=== PATIENT | male | born 1955 | race Caucasian/White ===

== ENCOUNTER 2017-05-05 23:20 | Emergency (ER) | payer OTHER ==
[2017-05-05] MEDS ORDERED: Lidocaine 1% with EPINEPHrine 1:100,000 50 ML MDV INFILT ONE (23:45)
[2017-05-05] MEDS ORDERED: Bacitracin Oint 1 GM U/D Packet TOP ONE (23:46)
--- NOTE | 2017-05-06 00:55 | EDM.PDOC ---
ED HPI GENERAL MEDICAL PROBLEM - General Chief Complaint: Laceration Stated Complaint: FALL CUT TOP OF HEAD Time Seen by Provider: 05/05/17 23:45 Source of Information: Reports: Patient, Family History Limitations: Reports: Intoxication - History of Present Illness INITIAL COMMENTS - FREE TEXT/NARRATIVE: 61-year-old male who is fairly intoxicated fell backwards and struck his head on a piece of furniture. He has an irregular laceration on his scalp with an avulsed central piece of scalp that was brought in by his . No loss of consciousness, bleeding is controlled. Onset: Sudden Duration: Hour(s): (Within the past hour) Location: Reports: Head Severity: Moderate Associated Symptoms: Reports: No Other Symptoms - Related Data Allergies Allergy/AdvReac Type Severity Reaction Status Date / Time No Known Allergies Allergy Verified 05/05/17 23:33 Home Meds: Home Meds Aspirin [Ecotrin] 325 mg PO DAILY 05/05/17 [History] Hydrochlorothiazide 25 mg PO DAILY 05/05/17 [History] Metoprolol Succinate [Toprol XL] 200 mg PO DAILY 05/05/17 [History] Phenytoin Sodium Extended [Dilantin] 300 mg PO DAILY 05/05/17 [History] Past Medical History Cardiovascular History: Reports: Afib, Hypertension Musculoskeletal History: Reports: Fracture Neurological History: Reports: Seizure Psychiatric History: Reports: Addiction Endocrine/Metabolic History: Reports: Obesity/BMI 30+ Social & Family History - Tobacco Use Smoking Status *Q: Never Smoker - Caffeine Use Caffeine Use: Reports: None - Alcohol Use Days Per Week of Alcohol Use: 7 Number of Drinks Per Day: 12 Total Drinks Per Week: 84 - Recreational Drug Use Recreational Drug Use: Yes Recreational Drug Type: Reports: Marijuana/Hashish Recreational Drug Use Frequency: Socially ED ROS GENERAL - Review of Systems Review Of Systems: See Below Constitutional: Denies: Fever HEENT: Denies: Vision Change Respiratory: Denies: Shortness of Breath GI/Abdominal: Denies: Nausea, Vomiting Neurological: Denies: Headache Psychiatric: Reports: No Symptoms ED EXAM, SKIN/RASH Exam: See Below Exam Limited By: Intoxication General Appearance: Alert, No Apparent Distress Eye Exam: Bilateral Eye: EOMI Head: Other (Patient has an irregular 16 cm laceration on his occiput with a central avulsed missing piece of dermis 1.5 cm wide by 3 cm long) Neck: Non-Tender Respiratory/Chest: No Respiratory Distress Course - Vital Signs Last Recorded V/S: Last Vital Signs Temp 96.5 F 05/05/17 23:34 Pulse 77 05/05/17 23:34 Resp 16 05/05/17 23:34 BP 154/113 H 05/05/17 23:34 Pulse Ox 91 L 05/05/17 23:34 - Orders/Labs/Meds Meds: Medications Discontinued Medications Generic Name Dose Route Start Last Admin Trade Name Bossman PRN Reason Stop Dose Admin Bacitracin 1 dose 05/05/17 23:46 05/05/17 23:54 Bacitracin Oint 1 Gm TOP 05/05/17 23:47 1 dose ONETIME ONE Administration Lidocaine/Epinephrine 30 ml 05/05/17 23:45 05/05/17 23:53 Xylocaine 1% With Epinephrine 1:100,000 INFILT 05/05/17 23:46 30 ml ONETIME ONE Administration - Re-Assessments/Exams Free Text/Narrative Re-Assessment/Exam: 05/06/17 00:52 The area was anesthetized with 1% lidocaine with epinephrine. After anesthesia and washing with saline, the edges of the wound were approximated using considerable undermining of the dermis. 15 sutures, 4-0 Ethilon were used in total to bring edges into approximation. Topical bacitracin and a nonstick dressing was applied, they should stay on for the evening. He should keep the wound covered and clean and stitches can be rechecked in 8 days. They may need to stay in longer because of the tension supplied to the sutures. Departure - Departure Time of Disposition: 01:02 Disposition: Home, Self-Care 01 Condition: Good Clinical Impression: Laceration of scalp with complication Qualifiers: Encounter type: initial encounter Qualified Code(s): S01.01XA - Laceration without foreign body of scalp, initial encounter - Discharge Information Instructions: Laceration Care, Adult, [id number] Referrals: Kellie Akers NP [Primary Care Provider] - Forms: ED Department Discharge Care Plan Goals: Keep wound covered and clean while healing. Okay to wash gently. Have wound rechecked in 8 days, recheck sooner if concerns of infection or not healing satisfactorily.
== END 2017-05-06 01:03 | disposition home or self-care (01) ==
LOC: JP.ED 23:20
DX: S01.01XA Laceration without foreign body of scalp, initial encounter (principal); F10.129 Alcohol abuse with intoxication, unspecified; Z79.82 Long term (current) use of aspirin; Z79.899 Other long term (current) drug therapy; W01.190A Fall on same level from slipping, tripping and stumbling with subsequent striking against furniture, initial encounter; I10 Essential (primary) hypertension
CPT/HCPCS: 12005; 99283; A4217

== ENCOUNTER 2017-05-21 12:53 | Emergency (ER) | payer OTHER ==
[2017-05-21] MEDS ORDERED: Hydrogen Peroxide 3% Top Soln 240 ML Bottle TOP STA (13:52)
--- NOTE | 2017-05-21 13:57 | EDM.PDOC ---
ED HPI GENERAL MEDICAL PROBLEM - General Chief Complaint: General Stated Complaint: REMOVE STITCHES FROM ER VISIT 05/04 Time Seen by Provider: 05/21/17 13:40 Source of Information: Reports: Patient History Limitations: Reports: No Limitations - History of Present Illness INITIAL COMMENTS - FREE TEXT/NARRATIVE: 61 yo male here for suture removal. Onset Date: 05/06/17 Duration: Day(s):, Improving Location: Reports: Head Quality: Reports: Other (no pain) Severity: Mild Improves with: Reports: Other (time) Worsens with: Reports: None Context: Reports: Trauma Associated Symptoms: Reports: No Other Symptoms Treatments AFTER [employer]IVER: Reports: Other (see below) (none) - Related Data Allergies Allergy/AdvReac Type Severity Reaction Status Date / Time No Known Allergies Allergy Verified 05/21/17 13:09 Home Meds: Home Meds Aspirin [Ecotrin] 325 mg PO DAILY 05/05/17 [History] Hydrochlorothiazide 25 mg PO DAILY 05/05/17 [History] Metoprolol Succinate [Toprol XL] 200 mg PO DAILY 05/05/17 [History] Phenytoin Sodium Extended [Dilantin] 300 mg PO DAILY 05/05/17 [History] Past Medical History Cardiovascular History: Reports: Afib, Hypertension Musculoskeletal History: Reports: Fracture Neurological History: Reports: Seizure Psychiatric History: Reports: Addiction Endocrine/Metabolic History: Reports: Obesity/BMI 30+ - Past Surgical History Other HEENT Surgeries/Procedures: HEAD LAC Social & Family History - Tobacco Use Smoking Status *Q: Unknown Ever Smoked - Caffeine Use Caffeine Use: Reports: None - Alcohol Use Days Per Week of Alcohol Use: 7 Number of Drinks Per Day: 12 Total Drinks Per Week: 84 - Recreational Drug Use Recreational Drug Use: Yes Recreational Drug Type: Reports: Marijuana/Hashish Recreational Drug Use Frequency: Socially ED ROS GENERAL - Review of Systems Review Of Systems: See Below Constitutional: Reports: No Symptoms HEENT: Reports: No Symptoms Respiratory: Reports: No Symptoms Cardiovascular: Reports: No Symptoms Endocrine: Reports: No Symptoms GI/Abdominal: Reports: No Symptoms : Reports: No Symptoms Musculoskeletal: Reports: No Symptoms Skin: Reports: Wound (healing) Neurological: Reports: No Symptoms ED EXAM, GENERAL - Physical Exam Exam: See Below Exam Limited By: No Limitations General Appearance: Alert, WD/WN, No Apparent Distress Skin Exam: Warm, Dry, Intact, Normal Color, Other (wound well healed. Large scab overlying some of the stitches. ) Lymphatic: No Adenopathy Course - Vital Signs Text/Narrative:: Sutures all removed here in the ER without issues. Scab overlying stitches removed with peroxide. Last Recorded V/S: Last Vital Signs Temp 35.8 C 05/21/17 13:04 Pulse 72 05/21/17 13:04 Resp 15 05/21/17 13:04 BP 166/123 H 05/21/17 13:04 Pulse Ox 97 05/21/17 13:04 - Orders/Labs/Meds Meds: Medications Discontinued Medications Generic Name Dose Route Start Last Admin Trade Name Freq PRN Reason Stop Dose Admin Hydrogen Peroxide 30 ml 05/21/17 13:52 05/21/17 14:03 Proxacol 3% TOP 05/21/17 13:53 30 ml ONETIME STA Administration Departure - Departure Time of Disposition: 14:37 Disposition: Home, Self-Care 01 Condition: Good Clinical Impression: Encounter for removal of sutures - Discharge Information Referrals: Kellie Akers [employer] DEVELOPER [Primary Care Provider] - Forms: ED Department Discharge
== END 2017-05-21 14:46 | disposition home or self-care (01) ==
LOC: JP.ED 12:53
DX: S01.01XD Laceration without foreign body of scalp, subsequent encounter (principal); Z79.82 Long term (current) use of aspirin; Z79.899 Other long term (current) drug therapy
CPT/HCPCS: 99281